=== PATIENT | female | born 1965 | race Caucasian/White ===

== ENCOUNTER 2018-01-28 07:28 | Day surgery (SDC) | payer OTHER ==
[~2018-01-28 07:28] MED LIST: ALBIPROI INH; ALBU90OI INH; AMIT10 PO; AMIT50 PO; AMLO5 PO; HYDACE5 PO; LISI20 PO; Lovastatin20 MG PO; MELO7.5 PO; PRED20 PO; SERT25 PO; SERT50 PO; VENL25 PO
[2018-02-22] MEDS ORDERED: MELA3 PO (08:47)
[2018-02-22] MEDS ORDERED: ALBU90OI61 INH (08:48)
[2018-02-22] MEDS ORDERED: ALBU90OI INH (08:48)
== END 2018-01-28 22:51 | disposition home or self-care (01) ==
LOC: MOI MAM 07:28
PROC: 0HBT3ZX Excision of Right Breast, Percutaneous Approach, Diagnostic (ICD-10-PCS; principal; 2018-01-28)
DX: C50.911 Malignant neoplasm of unspecified site of right female breast (principal); Z17.0 Estrogen receptor positive status [ER+]
CPT/HCPCS: 19083; 77065; 88305; 88360; A4648

== ENCOUNTER 2018-02-25 07:55 | Day surgery (SDC) | payer OTHER ==
[~2018-02-25 07:55] MED LIST changes: +ALBU90OI61 INH; +MELA3 PO
== END 2018-02-25 22:47 | disposition home or self-care (01) ==
LOC: MOI US 07:55
PROC: BH00ZZZ Plain Radiography of Right Breast (ICD-10-PCS; principal; 2018-02-25)
DX: C50.811 Malignant neoplasm of overlapping sites of right female breast (principal)
CPT/HCPCS: 19285; 77065

== ENCOUNTER 2018-02-28 08:11 | Day surgery (SDC) | payer OTHER ==
[~2018-02-28] VITALS: Ht 157.5 cm; Wt 71.7 kg
== END 2018-02-28 22:56 | disposition home or self-care (01) ==
LOC: NM 08:11 → ORSCMMR 08:11 → NM 08:12 → ORSCMMR 08:12 → NM 09:00 → ORSCMMR 22:56
PROVIDERS: Surgery
PROC: 07B50ZX Excision of Right Axillary Lymphatic, Open Approach, Diagnostic (ICD-10-PCS; principal; 2018-02-28 10:30)
PROC: 0HHT0NZ Insertion of Tissue Expander into Right Breast, Open Approach (ICD-10-PCS; principal; 2018-02-28 10:30)
PROC: 0HBT0ZZ Excision of Right Breast, Open Approach (ICD-10-PCS; principal; 2018-02-28 10:30)
DX: C50.811 Malignant neoplasm of overlapping sites of right female breast (principal); D36.0 Benign neoplasm of lymph nodes; I10 Essential (primary) hypertension; J44.9 Chronic obstructive pulmonary disease, unspecified; K21.9 Gastro-esophageal reflux disease without esophagitis; F17.210 Nicotine dependence, cigarettes, uncomplicated; B19.20 Unspecified viral hepatitis C without hepatic coma; Z79.899 Other long term (current) drug therapy
CPT/HCPCS: 38792; 76098; 88305; 88307; 88312; 88342; A9520; J0690; J1100; J2250; J2405; J3010; J7120; Q9968

== ENCOUNTER 2018-03-03 11:06 | Day surgery (SDC) | payer OTHER | END 2018-03-03 22:48 | disposition home or self-care (01) | LOC: ORSCMMR 11:06 → ORD 12:45 → ORSCMMR 22:48 | PROVIDERS: Surgery | PROC: 0WH803Z Insertion of Infusion Device into Chest Wall, Open Approach (ICD-10-PCS; principal; 2018-03-03 13:35) | DX: C50.811 Malignant neoplasm of overlapping sites of right female breast (principal); I10 Essential (primary) hypertension; J44.9 Chronic obstructive pulmonary disease, unspecified; K21.9 Gastro-esophageal reflux disease without esophagitis; B19.20 Unspecified viral hepatitis C without hepatic coma; F17.210 Nicotine dependence, cigarettes, uncomplicated; Z79.899 Other long term (current) drug therapy | CPT/HCPCS: C1728; J0690; J2250; J7120 ==

== ENCOUNTER → 2018-07-25 | Outpatient (CLI) | payer OTHER | END | disposition home or self-care (01) | LOC: LAB EV 15:36 → LAB SHORT 15:36 | DX: S21.001A Unspecified open wound of right breast, initial encounter (principal) | CPT/HCPCS: 87070; 87077; 87147; 87186; 87205 ==

== ENCOUNTER → 2019-04-18 | Outpatient (CLI) | payer OTHER ==
[2019-04-18 17:46] LABS: BASOPHILS ABSOLUTE AUTO 0.04 K/mm3 (0.00-0.23); BASOPHILS PERCENT AUTO 1 % (0-2); EOSINOPHILS ABSOLUTE AUTO 0.17 K/mm3 (0.00-0.68); EOSINOPHILS PERCENT AUTO 3 % (0-6); Hematocrit 36.9 % (33.0-51.0); Hemoglobin 13.1 g/dL (11.5-16.0); IMMATURE GRAN ABSOLUTE AUTO 0.02 K/mm3 (0.00-0.10); IMMATURE GRAN PERCENT AUTO 0 % (0-1); LYMPHOCYTES PERCENT AUTO 30 % (21-46); MONOCYTES ABSOLUTE AUTO 0.41 K/mm3 (0.16-1.47); MONOCYTES PERCENT AUTO 6 % (4-13); Mean Corpuscular HGB 30.9 pg (26.0-34.0); Mean Corpuscular HGB Conc 35.5 g/dL (31.5-36.5); Mean Corpuscular Volume 87 fL (80-100); Mean Platelet Volume 9.8 fL (9.1-12.4); NEUTROPHILS ABSOLUTE AUTO 4.15 K/mm3 (1.96-9.15); NEUTROPHILS PERCENT AUTO 61 % (41-73); Platelet Count 178 K/mm3 (150-400); RDW Coefficient Variation 12.7 % (11.7-14.2); Red Blood Cell Count 4.24 M/mm3 (3.80-5.20); White Blood Cell Count 6.79 K/mm3 (4.00-11.30)
[2019-04-18 17:57] LABS: Alanine Aminotransfer (ALT/SGP 36 U/L (12-78); Alk Phos 54 U/L (40-126); Anion Gap 13 mmol/L (6-16); Aspartate Aminotrans (AST/SGOT 23 U/L (12-37); Bilirubin, Total 0.5 mg/dL (0.1-1.0); Blood Urea Nitrogen 11 mg/dL (8-24); Bun/Creatinine Ratio 12.2 (12.0-20.0); CO2, Blood 22 mmol/L (21-32); Calcium, Blood 9.2 mg/dL (8.5-10.1); Chloride, Blood 104 mmol/L (98-108); Globulin, Blood 3.9 g/dL (2.2-4.0); Glomerular Filtration Rate >60 (60-); Glucose, Blood 84 mg/dL (70-99); Potassium, Blood 3.6 mmol/L (3.5-5.5); Sodium, Blood 139 mmol/L (136-145); Total Protein, Blood 7.9 g/dL (6.4-8.2)
[2019-04-18 18:13] LABS: Troponin I <0.017 ng/mL (0.000-0.040)
== END | disposition home or self-care (01) ==
LOC: LAB SHORT 17:40 → LAB EV 17:40
PROVIDERS: Physician Assistant
DX: R07.9 Chest pain, unspecified (principal)
CPT/HCPCS: 80053; 83690; 84484; 85025; 85379

== ENCOUNTER → 2019-04-22 | Outpatient (CLI) | payer OTHER ==
[2019-04-22 16:43] LABS: BASOPHILS ABSOLUTE AUTO 0.04 K/mm3 (0.00-0.23); BASOPHILS PERCENT AUTO 1 % (0-2); EOSINOPHILS ABSOLUTE AUTO 0.18 K/mm3 (0.00-0.68); EOSINOPHILS PERCENT AUTO 3 % (0-6); Hematocrit 37.8 % (33.0-51.0); Hemoglobin 13.6 g/dL (11.5-16.0); IMMATURE GRAN ABSOLUTE AUTO 0.01 K/mm3 (0.00-0.10); IMMATURE GRAN PERCENT AUTO 0 % (0-1); LYMPHOCYTES ABSOLUTE AUTO 1.66 K/mm3 (0.84-5.20); LYMPHOCYTES PERCENT AUTO 28 % (21-46); MONOCYTES ABSOLUTE AUTO 0.31 K/mm3 (0.16-1.47); MONOCYTES PERCENT AUTO 5 % (4-13); Mean Corpuscular HGB 31.9 pg (26.0-34.0); Mean Corpuscular Volume 89 fL (80-100); Mean Platelet Volume 10.1 fL (9.1-12.4); NEUTROPHILS ABSOLUTE AUTO 3.82 K/mm3 (1.96-9.15); NEUTROPHILS PERCENT AUTO 63 % (41-73); Platelet Count 191 K/mm3 (150-400); RDW Coefficient Variation 12.5 % (11.7-14.2); RDW Standard Deviation 39.8 fL (35.1-46.3); Red Blood Cell Count 4.27 M/mm3 (3.80-5.20); White Blood Cell Count 6.02 K/mm3 (4.00-11.30)
== END | disposition home or self-care (01) ==
LOC: LAB EV 16:38 → LAB SHORT 16:38
PROVIDERS: Physician Assistant
DX: K85.90 Acute pancreatitis without necrosis or infection, unspecified (principal)
CPT/HCPCS: 83690; 85025

== ENCOUNTER 2020-10-23 18:34 | Emergency (ER) | payer OTHER ==
[~2020-10-23] VITALS: Ht 157.5 cm; Wt 71.7 kg
[2020-10-23 19:33] LABS: BASOPHILS ABSOLUTE AUTO 0.07 K/mm3 (0.00-0.23); BASOPHILS PERCENT AUTO 1 % (0-2); EOSINOPHILS ABSOLUTE AUTO 0.18 K/mm3 (0.00-0.68); EOSINOPHILS PERCENT AUTO 3 % (0-6); Hematocrit 39.1 % (33.0-51.0); Hemoglobin 13.4 g/dL (11.5-16.0); IMMATURE GRAN ABSOLUTE AUTO 0.02 K/mm3 (0.00-0.10); IMMATURE GRAN PERCENT AUTO 0 % (0-1); LYMPHOCYTES ABSOLUTE AUTO 1.86 K/mm3 (0.84-5.20); LYMPHOCYTES PERCENT AUTO 29 % (21-46); MONOCYTES ABSOLUTE AUTO 0.39 K/mm3 (0.16-1.47); MONOCYTES PERCENT AUTO 6 % (4-13); Mean Corpuscular HGB 31.4 pg (26.0-34.0); Mean Corpuscular HGB Conc 34.3 g/dL (31.5-36.5); Mean Corpuscular Volume 92 fL (80-100); Mean Platelet Volume 9.7 fL (9.1-12.4); NEUTROPHILS ABSOLUTE AUTO 3.88 K/mm3 (1.96-9.15); NEUTROPHILS PERCENT AUTO 61 % (41-73); Platelet Count 213 K/mm3 (150-400); RDW Coefficient Variation 12.9 % (11.7-14.2); RDW Standard Deviation 43.2 fL (35.1-46.3); Red Blood Cell Count 4.27 M/mm3 (3.80-5.20)
[2020-10-23 19:55] LABS: Alanine Aminotransfer (ALT/SGP 34 U/L (12-78); Albumin, Blood 4.1 g/dL (3.4-5.0); Alk Phos 56 U/L (50-136); Anion Gap 7 mmol/L (6-16); Aspartate Aminotrans (AST/SGOT 22 U/L (12-37); Bilirubin, Total 0.3 mg/dL (0.1-1.0); Blood Urea Nitrogen 12 mg/dL (8-24); Bun/Creatinine Ratio 13.1 (12.0-20.0); CO2, Blood 23 mmol/L (21-32); Calcium, Blood 9.4 mg/dL (8.5-10.1); Chloride, Blood 110 mmol/L (98-108); Creatinine, Blood 0.92 mg/dL (0.40-1.00); Glomerular Filtration Rate >60 (60-); Glucose, Blood 106 mg/dL (70-99); Potassium, Blood 3.9 mmol/L (3.5-5.5); Sodium, Blood 140 mmol/L (136-145); Total Protein, Blood 8.1 g/dL (6.4-8.2)
== END 2020-10-24 01:05 | disposition home or self-care (01) ==
LOC: ER 18:34
PROVIDERS: Emergency Medicine
DX: R10.13 Epigastric pain (principal); R14.0 Abdominal distension (gaseous); J44.9 Chronic obstructive pulmonary disease, unspecified; F32.9 Major depressive disorder, single episode, unspecified; I10 Essential (primary) hypertension; Z88.6 Allergy status to analgesic agent; Z88.8 Allergy status to other drugs, medicaments and biological substances; Z79.899 Other long term (current) drug therapy; Z87.891 Personal history of nicotine dependence
CPT/HCPCS: 36415; 74177; 76705; 80053; 83690; 85025; 93005; 93010; 96361; 96374; 99284-25; J7030; Q9967

== ENCOUNTER → 2020-10-31 | Outpatient (CLI) | payer OTHER ==
[~2020-10-31] MED LIST changes: -AMIT10 PO; +ANAS1 PO; +Amitriptyline H25 MG PO; +COMBIVENT RESPIM4 G1
== END | disposition home or self-care (01) ==
LOC: PLD 07:32 → LAB SHORT 07:32
DX: K14.3 Hypertrophy of tongue papillae (principal)
CPT/HCPCS: 88305; 88312

== ENCOUNTER → 2021-05-23 | Outpatient (CLI) | payer OTHER ==
[2021-05-27 10:09] LABS: HPV 16 Negative (Negative); HPV 18 Negative (Negative); HPV OTHER HR TYPES Negative (Negative)
== END | disposition home or self-care (01) ==
LOC: LAB SHORT 09:45 → LAB UCHC 09:45 → LAB 09:45
PROVIDERS: Student in an Organized Health Care Education/Training Program
DX: Z01.419 Encounter for gynecological examination (general) (routine) without abnormal findings (principal)
CPT/HCPCS: 87624; G0123

== ENCOUNTER 2021-06-03 08:40 | Day surgery (SDC) | payer OTHER ==
[~2021-06-03] VITALS: Ht 157.5 cm; Wt 66.9 kg
--- NOTE | 2021-06-03 09:44 | NUR ---
Ambulatory in Day Surgery. Patient confirms NPO status and agrees with scheduled surgery. History, Chart, Medications and Allergies reviewed before start of procedure. Lungs clear T/O to Auscultation. Patient States Post-Procedure ride home has been arranged.
--- NOTE | 2021-06-03 09:54 | NUR ---
06/03/21 0954 Dalton Couch History, Chart, Medications and Allergies reviewed before start of procedure. MONITOR INTACT WITH CONTINUOUS PULSE OXIMETRY AND INTERMITTENT BP. 3-LEAD EKG REVIEWED WITH PHYSICIAN PRIOR TO START OF PROCEDURE. O2 VIA N/C INTACT THROUGHOUT SEDATION/PROCEDURE. HURRICAINE SPRAY TO OROPHARYX. Bite Block Placed. PATIENT DETERMINED TO BE ASA APPROPRIATE FOR PROPOFOL SEDATION PRIOR TO START OF PROCEDURE BY DR. QUINTERO.
--- NOTE | 2021-06-03 10:30 | NUR ---
Patient up to Ambulate independently. Gait steady. Lungs clear T/O to Auscultation. Patient States Post-Procedure ride home has been arranged. Discharged via wheelchair to private car for ride home. Discharge instructions reviewed with patient. Patient verbalizes understanding. Copy given to patient to take home.
== END 2021-06-03 10:53 | disposition home or self-care (01) ==
LOC: ORSCMMR 08:40 → ORD 09:30 → ORSCMMR 10:53
PROVIDERS: Internal Medicine Gastroenterology
PROC: 0DB68ZX Excision of Stomach, Via Natural or Artificial Opening Endoscopic, Diagnostic (ICD-10-PCS; principal; 2021-06-03 09:30)
PROC: 0DB98ZX Excision of Duodenum, Via Natural or Artificial Opening Endoscopic, Diagnostic (ICD-10-PCS; principal; 2021-06-03 09:30)
PROC: 0DB48ZX Excision of Esophagogastric Junction, Via Natural or Artificial Opening Endoscopic, Diagnostic (ICD-10-PCS; principal; 2021-06-03 09:30)
PROC: 0DB58ZX Excision of Esophagus, Via Natural or Artificial Opening Endoscopic, Diagnostic (ICD-10-PCS; principal; 2021-06-03 09:30)
DX: R13.10 Dysphagia, unspecified (principal); K21.00 Gastro-esophageal reflux disease with esophagitis, without bleeding; K29.80 Duodenitis without bleeding; K29.70 Gastritis, unspecified, without bleeding; J44.9 Chronic obstructive pulmonary disease, unspecified; I10 Essential (primary) hypertension; F32.9 Major depressive disorder, single episode, unspecified; F17.210 Nicotine dependence, cigarettes, uncomplicated; Z79.899 Other long term (current) drug therapy
CPT/HCPCS: 88305; 88312; 88342; A9270; J2704; J7120

== ENCOUNTER 2023-07-10 22:20 | Inpatient (IN) | payer OTHER ==
[~2023-07-10] VITALS: Ht 162.6 cm; Wt 76.6 kg
[2023-07-10 22:42] LABS: BASOPHILS ABSOLUTE AUTO 0.07 K/mm3 (0.00-0.23); BASOPHILS PERCENT AUTO 1 % (0-2); EOSINOPHILS ABSOLUTE AUTO 0.39 K/mm3 (0.00-0.68); EOSINOPHILS PERCENT AUTO 6 % (0-6); Hematocrit 33.8 % (33.0-51.0); Hemoglobin 11.9 g/dL (11.5-16.0); IMMATURE GRAN ABSOLUTE AUTO 0.01 K/mm3 (0.00-0.10); IMMATURE GRAN PERCENT AUTO 0 % (0-1); LYMPHOCYTES ABSOLUTE AUTO 2.21 K/mm3 (0.84-5.20); LYMPHOCYTES PERCENT AUTO 35 % (21-46); MONOCYTES ABSOLUTE AUTO 0.38 K/mm3 (0.16-1.47); MONOCYTES PERCENT AUTO 6 % (4-13); Mean Corpuscular HGB 31.4 pg (26.0-34.0); Mean Corpuscular HGB Conc 35.2 g/dL (31.5-36.5); Mean Corpuscular Volume 89 fL (80-100); Mean Platelet Volume 9.5 fL (9.1-12.4); NEUTROPHILS ABSOLUTE AUTO 3.24 K/mm3 (1.96-9.15); NEUTROPHILS PERCENT AUTO 51 % (41-73); Platelet Count 180 K/mm3 (150-400); RDW Coefficient Variation 13.2 % (11.7-14.2); RDW Standard Deviation 43.3 fL (35.1-46.3); Red Blood Cell Count 3.79 M/mm3 (3.80-5.20)
[2023-07-10 22:54] LABS: Acetaminophen, Random <2.0 ug/mL (10.0-30.0); Alanine Aminotransfer (ALT/SGP 39 U/L (12-78); Albumin, Blood 3.2 g/dL (3.4-5.0); Alk Phos 59 U/L (50-136); Anion Gap 7 mmol/L (6-16); Aspartate Aminotrans (AST/SGOT 21 U/L (12-37); Bilirubin, Total 0.2 mg/dL (0.1-1.0); Blood Urea Nitrogen 14 mg/dL (8-24); Bun/Creatinine Ratio 14.8 (12.0-20.0); CO2, Blood 23 mmol/L (21-32); Calcium, Blood 8.4 mg/dL (8.5-10.1); Chloride, Blood 110 mmol/L (98-108); Creatinine, Blood 0.95 mg/dL (0.40-1.00); Ethanol (Alcohol), Blood, Med 254 mg/dL; Globulin, Blood 3.2 g/dL (2.2-4.0); Glomerular Filtration Rate 69 (60-); Glucose, Blood 118 mg/dL (70-99); Potassium, Blood 3.7 mmol/L (3.5-5.5); Sodium, Blood 140 mmol/L (136-145); Total Protein, Blood 6.4 g/dL (6.4-8.2)
[2023-07-11] VITALS (78 sets, daily range): BP systolic 65–112; BP diastolic 41–80
[2023-07-11] MEDS ORDERED: BUSP5 PO (01:38)
[2023-07-11 03:28] LABS: BASOPHILS ABSOLUTE AUTO 0.09 K/mm3 (0.00-0.23); BASOPHILS PERCENT AUTO 2 % (0-2); EOSINOPHILS ABSOLUTE AUTO 0.24 K/mm3 (0.00-0.68); EOSINOPHILS PERCENT AUTO 4 % (0-6); Hematocrit 37.1 % (33.0-51.0); IMMATURE GRAN ABSOLUTE AUTO 0.02 K/mm3 (0.00-0.10); IMMATURE GRAN PERCENT AUTO 0 % (0-1); LYMPHOCYTES PERCENT AUTO 31 % (21-46); MONOCYTES ABSOLUTE AUTO 0.39 K/mm3 (0.16-1.47); MONOCYTES PERCENT AUTO 6 % (4-13); Mean Corpuscular HGB 31.8 pg (26.0-34.0); Mean Corpuscular Volume 91 fL (80-100); Mean Platelet Volume 9.4 fL (9.1-12.4); NEUTROPHILS ABSOLUTE AUTO 3.51 K/mm3 (1.96-9.15); NEUTROPHILS PERCENT AUTO 57 % (41-73); Platelet Count 185 K/mm3 (150-400); RDW Coefficient Variation 13.2 % (11.7-14.2); RDW Standard Deviation 43.7 fL (35.1-46.3); Red Blood Cell Count 4.09 M/mm3 (3.80-5.20); White Blood Cell Count 6.15 K/mm3 (4.00-11.30)
[2023-07-11 03:50] LABS: Albumin, Blood 3.3 g/dL (3.4-5.0); Bilirubin, Total 0.3 mg/dL (0.1-1.0); Calcium, Blood 8.3 mg/dL (8.5-10.1); Globulin, Blood 3.2 g/dL (2.2-4.0); Total Protein, Blood 6.5 g/dL (6.4-8.2)
[2023-07-11 04:09] LABS: Salicylate 3.3 mg/dL (2.8-20.0)
--- NOTE | 2023-07-11 07:12 | NUR ---
SHIFT SUMMARY PATIENT TO ICU FROM ER AT 0130. PATIENT IS ALERT AND ORIENTED X4. DENIES SI ON ADMIT. ADMITS TO TAKING AMYTRYPTILINE, AMLODIPINE, MELATONIN AND LISINOPRIL, MEDS FILLED ON 07/05 AND BOTTLES EMPTY. 02 SATS 92% ON 4L NC, EXP WHEEZE, TALKED WITH RT ABOUT BREATHING TREATMENT. HR SR 74. BP HYPOTENSIVE, CONSULTED WITH POISON CONTROL AND RECOMENDATION FOR CALCIUM CHLORIDE AND PRESSORS. PATIENT STARTED ON LEVOPHED, THEN GIVEN 500 MLS BOLUS OF NS, THEN GIVEN CALCIUM CHLORIDE BOLUS PER HOSPITALIST, POISON CONTROL AWARE.
[2023-07-11 07:42] LABS: U Amphetamine Screen Not Detected; U Barbituate Screen Not Detected; U Benzodiazapine Screen Not Detected; U Buprenorphine Screen Not Detected; U Cannabinoids Screen Not Detected; U Cocaine Screen Not Detected; U Methadone Screen Not Detected; U Methamphetamine Screen Not Detected; U Opiates Screen Not Detected; U Oxycodone Screen Not Detected; U Phencyclidine Screen Not Detected; U Propoxyphene Screen Not Detected
--- NOTE | 2023-07-11 12:46 | NUR ---
REASSESSMENT PT HAS BEEN RESTING IN BED WITH EYES CLOSED FOR MOST OF THE MORNING. SHE OPENS EYES EASILY TO VOICE AND IS FULLY ORIENTED, BUT WOULD FALL BACK ASLEEP WHEN LEFT ALONE. CURRENTLY PT IS STAYING AWAKE AND WATCHING TV. SHE DENIES ANY CURRENT SI, BUT DOES SAY THAT SHE WAS HAVING SUICIDAL THOUGHTS WHEN SHE TOOK THE MEDICATIONS. SHE CONTINUES TO REQUIRE LEVOPHED FOR BP SUPPORT. MAP CURRENTLY 70 WITH LEVOPHED AT 8MCG/MIN. IV SITE THAT LEVOPHED INFUSING INTO FLUSHES EASILY AND HAS EXCELLENT BLOOD RETURN. PT'S SON CAME BY AND DROPPED OFF PT'S WALLET. ADVISED HIM TO TAKE IT BACK WITH HIM BECAUSE PT CAN'T HAVE IT, BUT HE STATED THAT THERE IS ADDIE HER ID AND INSURANCE CARDS IN IT, NO MONEY AND ASKED FOR IT TO BE LEFT. WALLET PLACED IN PT'S BELONGING BAG OUTSIDE THE ROOM.
--- NOTE | 2023-07-11 17:08 | NUR ---
SHIFT SUMMARY PT HAS CONTINUED TO SLOWLY BECOME MORE ALERT THROUGHOUT THE SHIFT. THIS AFTERNOON SHE WAS AWAKE ENOUGH TO SAFELY TAKE PO SO DR. LOPEZ GAVE OK TO START DIET. PT SITTING UP EATING DINNER NOW. PT CONTINUES TO DENY CURRENT SI. AFTER ROUNDING ON PT, DR. LOPEZ GAVE ORDERS TO SWITCH PT TO LOW SI RISK, DC HOLD, DROP 1:1 SITTER, BUT KEEP CONSULT FOR DR. THEODORE TOMORROW. LEVOPHED TITRATED OFF THROUGHOUT THE AFTERNOON, MAP CURRENTLY 73. OXYGEN TITRATED DOWN TO 2L/NC. PT GOT UP TO BSC ONCE WITH MINIMAL ASSIST. CONTINUING TO MONITOR.
[2023-07-11] MEDS ORDERED: SPIRIVA RESPIMAT4 G2 INH (20:35)
[2023-07-11] MEDS ORDERED: 1/2 NS 250ml250 ML (20:35)
--- NOTE | 2023-07-11 20:53 | NUR ---
ASSUMED CARE AT 1900 PATIENT IS ALERT AND ORIENTED X4. 02 SATS 93% ON 2L VIA NC WHILE SLEEPING. SOME SOB WITH ACTIVITY. HR SR 80s, BP STABLE, DENIES CP/PRESSURE. DENIES SI AT THIS TIME. IDEPENDENT WITH REPOSITIONING. SBA TO COMMADE. CALL LIGHT IN REACH
[2023-07-12] VITALS (19 sets, daily range): BP systolic 87–135; BP diastolic 34–84
--- NOTE | 2023-07-12 05:58 | NUR ---
SHIFT SUMMARY PATIENT REMAIN ALERT AND ORIENTED X4. 02 SATS 93% ON 2-4L WHILE SLEEPING. HR SR 80s. BP STABLE THROUGH THE NIGHT. UP TO BSC. DENIES SI. NO ACUTE CHANGES. CALL LIGHT IN REACH
[2023-07-12] MEDS ORDERED: ANAS1 PO (09:17)
--- NOTE | 2023-07-12 16:45 | NUR ---
DR SHAFER: PROVIDER HAS BEEN AT BEDSIDE TO EVAL THIS PT. HE HAS DISCONTINUED SI PRECAUTIONS & HAS NOTIFIED DR IZQUIERDO THAT HE FEELS THE PT IS SAFE TO DISCHARGE HOME FROM A PSYCHAITRY STANDPOINT. DR IZQUIERDO WILL PLACE DISCHARGE ORDERS FOR THIS PT. NO OTHER CHANGES AT THIS TIME.
--- NOTE | 2023-07-12 17:18 | NUR ---
DISCHARGE TO HOME: ORDERS PLACED & DISCHARGE COMPLETED. THIS RN HAS REVIEWED THE DISCHARGE INSTRUCTIONS AT LENGTH WITH THIS PT & SHE DENIES FURTHER QUESTIONS. SHE VERBALIZES HAVING AN APPOINTMENT THIS WEEK W/ ADAPT & UNDERSTANDS THAT [facility] SHOULD BE CONTACTING HER TO SCHEDULE A FOLLOW-UP APPOINTMENT. SHE UNDERSTANDS THAT SHE WILL NEED TO RETURN TO THE ED IF SI SYMPTOMS RETURN. PIV & ALL MONITORS HAVE BEEN REMOVED. PT AMBULATED OUT OF UNIT W/ HER SON AT APPROX 1715.
== END 2023-07-12 17:35 | disposition home or self-care (01) | DRG 918 ==
LOC: ER 22:20 → ICUE 22:21 → ER 22:21 → ICUE 22:21
PROVIDERS: Emergency Medicine; ADMIT Internal Medicine
PROC: 3E033XZ Introduction of Vasopressor into Peripheral Vein, Percutaneous Approach (ICD-10-PCS; principal; 2023-07-11)
DX: T46.4X2A Poisoning by angiotensin-converting-enzyme inhibitors, intentional self-harm, initial encounter (principal); T46.1X2A Poisoning by calcium-channel blockers, intentional self-harm, initial encounter; T43.012A Poisoning by tricyclic antidepressants, intentional self-harm, initial encounter; T43.222A Poisoning by selective serotonin reuptake inhibitors, intentional self-harm, initial encounter; F10.129 Alcohol abuse with intoxication, unspecified; G43.909 Migraine, unspecified, not intractable, without status migrainosus; I10 Essential (primary) hypertension; M19.90 Unspecified osteoarthritis, unspecified site; I95.9 Hypotension, unspecified; J44.9 Chronic obstructive pulmonary disease, unspecified; F32.A Depression, unspecified; F41.1 Generalized anxiety disorder; F17.210 Nicotine dependence, cigarettes, uncomplicated; Z98.890 Other specified postprocedural states; Z88.6 Allergy status to analgesic agent; Z88.8 Allergy status to other drugs, medicaments and biological substances; Z79.899 Other long term (current) drug therapy; Z85.3 Personal history of malignant neoplasm of breast; X58.XXXA Exposure to other specified factors, initial encounter
CPT/HCPCS: 36415; 71045; 80053; 85025; 93005; 93010; 94640; 94664; 94762; 96372; 96374; 96375; 96376; 99285-25; A9270; G0378; G0480; J1650; J2405; J7030; J7060

== ENCOUNTER 2023-11-24 07:48 | Day surgery (SDC) | payer OTHER ==
[~2023-11-24] VITALS: Ht 157.5 cm; Wt 76.8 kg
[~2023-11-24 07:48] MED LIST changes: +1/2 NS 250ml250 ML; +BUSP5 PO; +SPIRIVA RESPIMAT4 G2 INH
[2023-11-24] MEDS ORDERED: COMBIVENT RESPIM4 G1 (08:49)
[2023-11-24] MEDS ORDERED: DULO60 PO (08:50)
[2023-11-24] MEDS ORDERED: IBU800 MG PO (08:51)
--- NOTE | 2023-11-24 10:51 | NUR ---
11/24/23 1051 Lynda Lainez VERSED 2MG IV X1 GIVEN AT [address] CORTEZ.
--- NOTE | 2023-11-24 12:19 | NUR ---
11/24/23 1219 Michelle Villegas SPLINTS IMPLANTED TO BILATERAL NARES, LOT # [id number], EXP 02/17/2031
[2023-11-24 14:48] VITALS: BP 153/82
== END 2023-11-24 15:00 | disposition home or self-care (01) ==
LOC: ORSCSDS 07:48
PROVIDERS: Otolaryngology
PROC: 09CX4ZZ Extirpation of Matter from Left Sphenoid Sinus, Percutaneous Endoscopic Approach (ICD-10-PCS; principal; 2023-11-24 09:15)
PROC: 0NBG4ZZ Excision of Left Ethmoid Bone, Percutaneous Endoscopic Approach (ICD-10-PCS; principal; 2023-11-24 09:15)
PROC: 09SM0ZZ Reposition Nasal Septum, Open Approach (ICD-10-PCS; principal; 2023-11-24 09:15)
PROC: 0NBF4ZZ Excision of Right Ethmoid Bone, Percutaneous Endoscopic Approach (ICD-10-PCS; principal; 2023-11-24 09:15)
DX: J32.8 Other chronic sinusitis (principal); J34.2 Deviated nasal septum; D16.4 Benign neoplasm of bones of skull and face; I10 Essential (primary) hypertension; F17.210 Nicotine dependence, cigarettes, uncomplicated; J44.9 Chronic obstructive pulmonary disease, unspecified; Z79.899 Other long term (current) drug therapy; F41.9 Anxiety disorder, unspecified
CPT/HCPCS: 88305; 88311; 88312; C2625; J0171; J1100; J1885; J2250; J2371; J2405; J2704; J3010; J7120

== ENCOUNTER → 2025-10-16 | Outpatient (CLI) | payer OTHER ==
[~2025-10-16] MED LIST changes: +DULO60 PO; +IBU800 MG PO
== END | disposition home or self-care (01) ==
LOC: LAB 17:32 → LAB SHORT 17:32
PROVIDERS: Family Medicine
DX: Z01.419 Encounter for gynecological examination (general) (routine) without abnormal findings (principal)
CPT/HCPCS: 87624; G0145

== ENCOUNTER 2025-11-28 21:33 | Emergency (ER) | payer OTHER ==
[~2025-11-28] VITALS: Ht 157.5 cm; Wt 68.0 kg
[2025-11-28 21:44] VITALS: BP 133/78
[2025-11-28] MEDS ORDERED: Ketorolac Tromethamine 15mg Vial IM ONE (22:35)
[2025-11-28] MEDS ORDERED: HYDROCODONE-AC1 EA10 PO (22:39)
== END 2025-11-28 23:17 | disposition home or self-care (01) ==
LOC: ER 21:33
DX: S46.011A Strain of muscle(s) and tendon(s) of the rotator cuff of right shoulder, initial encounter (principal); X50.0XXA Overexertion from strenuous movement or load, initial encounter; Z88.8 Allergy status to other drugs, medicaments and biological substances; Z79.899 Other long term (current) drug therapy; J45.909 Unspecified asthma, uncomplicated; I10 Essential (primary) hypertension; J44.9 Chronic obstructive pulmonary disease, unspecified
CPT/HCPCS: 73030; 96372; 99283-25; J1885